=== PATIENT | male | born 1990 | race Caucasian/White ===

== ENCOUNTER 2018-10-30 18:25 | Emergency (ER) | payer MEDICAID, OTHER ==
[~2018-10-30] VITALS: Ht 162.6 cm; Wt 76.9 kg
[~2018-10-30 18:25] MED LIST: AMOX1TAB10 PO; ONDA4TAB8 PO
[2018-10-30 18:51] VITALS: Ht 162.6 cm; Wt 76.9 kg
[2018-10-30] MEDS ORDERED: ONDANSETRON 4 MG INJ IM STA (19:24)
[2018-10-30] MEDS ORDERED: ONDANSETRON 4 MG INJ IV STA (19:27)
[2018-10-30] MEDS ORDERED: SOD CHLORIDE 0.9% 1,000 ML IV ONE (19:30)
[2018-10-30] MEDS ORDERED: KETOROLAC 15 MG INJ IV STA (19:37)
[2018-10-30 21:35] VITALS: BP 120/75; PULSE 79; RESP 16
== END 2018-10-30 21:45 | disposition home or self-care (01) ==
LOC: FTE 18:25
DX: H66.003 Acute suppurative otitis media without spontaneous rupture of ear drum, bilateral (principal); R11.2 Nausea with vomiting, unspecified
CPT/HCPCS: 36415; 80048; 81001; 85025; 96361; 96374; 96375; J1885; J2405; J7030; Z7502